=== PATIENT | male | born 1980 | race Caucasian/White ===

== ENCOUNTER 2019-10-16 15:54 | Emergency (ER) | payer OTHER, SELFPAY ==
--- NOTE | ~2019-10-16 | XR_ITS ---
EXAMINATION: XR chest 1V portable EXAM DATE: 10/16/2019 19:01 INDICATION: Vomiting. Thinks he has food poisoning. TECHNIQUE: Portable AP frontal chest x-ray was obtained. Comparison is made to prior examination from 01/01/2017. FINDINGS: The lungs are clear. There are no pleural effusions. Cardiac silhouette is prominent but magnified on this AP technique. There is no pneumothorax suspected. The bones and soft tissues are unremarkable. Spine stimulator leads, tips projecting over the T7 and T8 vertebral bodies. IMPRESSION: No acute cardiopulmonary findings. Reviewed, dictated and finalized at location A.
[2019-10-16 15:55] VITALS: BP 120/70; PULSE 84; RESP 18; TEMP 36.6; O2SAT 100
[2019-10-16 16:47] LABS: Basophils Percent Auto 0.2 % (0.2-1.2); Eosinophils Absolute Auto 0.1 K/mm3 (0-0.3); Eosinophils Percent Auto 0.5 % (0-4.4); Hematocrit 44.2 % (42.0-52.0); Hemoglobin 15.1 g/dL (14.0-18.0); Immature Granulocyte Absolute 0.05 K/mm3 (0.00-0.031); Immature Granulocyte Percent A 0.4 % (0-0.5); Lymphocytes Absolute Auto 1.42 K/mm3 (0.9-3.2); Lymphocytes Percent Auto 10.6 % (18.3-44.2); Mean Corpuscular HGB Conc 34.2 g/dl (32-36); Mean Corpuscular Hemoglobin 30.2 pg (26-34); Mean Corpuscular Volume 88.4 fl (80-100); Mean Platelet Volume 10.4 fl (7.4-10.4); Monocytes Percent Auto 7.6 % (2.6-8.5); Neutrophils Absolute Auto 10.8 K/mm3 (1.3-6.7); Neutrophils Percent Auto 80.7 % (45.5-73.1); Platelet Count Result 231 k/mm3 (150-375); Red Cell Distribution Width 12.1 % (11.5-14.5); White Blood Count 13.4 K/mm3 (4.5-10.0)
[2019-10-16] MEDS: FAMOTIDINE 20 MG/2 ML VIAL IV PUSH (16:53)
[2019-10-16] MEDS: ONDANSETRON INJ 4 MG/2 ML VIAL IV PUSH (16:56)
[2019-10-16 16:58] LABS: Alanine Aminotransferase 39 U/L (4-50); Albumin Level 4.7 g/dL (3.5-5.1); Alkaline Phosphatase 108 U/L (38-126); Aspartate Amino Transferase 27 U/L (17-59); Bilirubin,Total 0.9 mg/dL (0.2-1.3); Blood Urea Nitrogen 10 mg/dL (9-20); Calcium 9.4 mg/dL (8.4-10.2); Carbon Dioxide 31 mmol/L (22-30); Chloride 101 mmol/L (98-107); Estimated CRCL calculation 110 ml/min; Estimated Glomerular Filt Rate > 60; Glucose 101 mg/dL (75-110); Lipase 57 U/L (23-300); Potassium 3.4 mmol/L (3.4-5.0); Sodium 139 mmol/L (137-145)
[2019-10-16] MEDS: SODIUM CHLORIDE 0.9% IV 1,000 ML 999 ML IV CONT ×2 (17:00→18:15)
--- NOTE | 2019-10-16 17:38 | ED.ABDPAIN ---
HPI - Abdominal Pain General Chief Complaint: Abdominal Pain Stated Complaint: I think I have food poisoning Time Seen by Provider: 10/16/19 15:58 Source: patient Mode of arrival: ambulatory Limitations: no limitations History of Present Illness HPI narrative: Patient is a 39 male who presents with vomiting and diarrhea after eating fast food last night noting that he had multiple episodes of emesis and diarrhea with possible blood in his stool. Patient notes diffuse cramping has not taken anything for his symptoms. Patient notes he ate fast food and his symptoms developed in the early hours of the morning. Patient was seen at urgent care and also notes he has been having a migraine for the last several days with history of chronic migraines. Patient on arrival is in the room in no distress. Patient denies URI symptoms or sick contacts Related Data Allergies Allergy/AdvReac Type Severity Reaction Status Date / Time No Known Allergies Allergy Mild Verified 10/16/19 15:34 Review of Systems Review of Systems: All systems reviewed & are unremarkable except as noted in HPI and below PMFSH Past Medical History Medical History (Updated 10/16/19 @ 18:54 by Flex Landon PA-C) Migraine headache Social History Social History Smoking status: Never smoker Alcohol intake: current Exam Narrative: Exam Narrative: GENERAL: Well-appearing, well-nourished, and in no acute distress. HEAD: Normocephalic, atraumatic. EYES: PERRLA and EOMI. ENT: Nares clear, no rhinorrhea or epistaxis. Mucous membranes moist. CHEST: Clear to auscultation. No respiratory distress. No wheezes rales or rhonchi HEART: Regular rate and rhythm. No murmur heard. Normal peripheral pulses. ABDOMEN: Soft, mild tenderness of the abdomen that is generalized, nondistended, normal active bowel sounds. EXTREMITIES: Normal range of motion. No edema. SKIN: Warm, dry, no rash. NEURO: No focal deficits. Alert and oriented x3. Cranial nerves II through XII grossly intact PSYCH: Normal mood and affect. Course Course Emergency Course: Patient in the room aware of case findings treatment plan and diagnosis feeling better with interventions felt appropriate for discharge home agreeing to follow-up as directed or to return if symptoms worsen or concerns Vital Signs Vital signs: Vital Signs Temperature 97.8 F 10/16/19 15:55 Pulse Rate 84 10/16/19 15:55 Respiratory Rate 18 10/16/19 15:55 Blood Pressure 120/70 10/16/19 15:55 Pulse Oximetry 100 10/16/19 15:55 Temperature 97.8 F 10/16/19 15:55 Pulse Rate 84 10/16/19 15:55 Respiratory Rate 18 10/16/19 15:55 Blood Pressure 120/70 10/16/19 15:55 Pulse Oximetry 100 10/16/19 15:55 MDM - Abdominal Pain MDM Narrative Medical decision making narrative: Patient was hydrated with medications in the emergency department for nausea and his headache is feeling much better at this time agreeing to follow-up as directed felt appropriate for outpatient reevaluation tolerating p.o. intake agreeing to return if symptoms worsen or concerns Lab Data Result diagrams: 10/16/19 16:39 10/16/19 16:39 Labs: Lab Results 10/16/19 10/16/19 10/16/19 Range/Units 16:39 16:39 18:31 WBC 13.4 H (4.5-10.0) K/mm3 RBC 5.00 (4.6-6.20) M/mm3 Hgb 15.1 (14.0-18.0) g/dL Hct 44.2 (42.0-52.0) % MCV 88.4 (80-100) fl MCH 30.2 (26-34) pg MCHC 34.2 (32-36) g/dl RDW 12.1 (11.5-14.5) % Plt Count 231 (150-375) k/mm3 MPV 10.4 (7.4-10.4) fl Immature Gran % (Auto) 0.4 (0-0.5) % Neut % (Auto) 80.7 H (45.5-73.1) % Lymph % (Auto) 10.6 L (18.3-44.2) % [place] % (Auto) 7.6 (2.6-8.5) % Eos % (Auto) 0.5 (0-4.4) % Baso % (Auto) 0.2 (0.2-1.2) % Lymph # (Auto) 1.42 (0.9-3.2) K/mm3 [place] # (Auto) 1.0 H (0.1-0.6) K/mm3 Eos # (Auto) 0.1 (0-0.3) K/mm3 Ba
[2019-10-16 18:45] LABS: Add Urine Microscopic? YES; Appearance Urine Clear (Clear); Bacteria Urine Trace /hpf; Bilirubin Urine Negative (Negative); Blood Urine 1+ (Negative); Color Urine Colorless (Yellow); Glucose Urine UA Negative (Negative); Ketones Urine Negative (Negative); Leukocyte Esterase Ur Negative LEU/UL (Negative); Mucus Urine Rare /lpf; Nitrate Urine Negative (Negative); Protein Urine Negative (Negative); Specific Grav Ur 1.005 (1.001-1.035); Urobilinogen Urine Negative mg/dL (<2.0); WBC Urine 0-3 /hpf
[2019-10-16 19:19] VITALS: BP 118/72; PULSE 88; RESP 16; TEMP 36.4; O2SAT 100
== END 2019-10-16 19:22 | disposition home or self-care (01) ==
PROVIDERS: Emergency Medicine Emergency Medical Services; Emergency Provider Emergency Medicine; PCP Family Medicine
DX: G43.909 Migraine, unspecified, not intractable, without status migrainosus (principal); R10.84 Generalized abdominal pain
CPT/HCPCS: 36415; 71045; 80053; 81001; 83690; 85025; 96361; 96374; 96375; 99284; J0131; J1200; J2405; J7030

== ENCOUNTER 2020-10-08 15:41 | Outpatient (CLI) | payer OTHER, SELFPAY ==
--- NOTE | ~2020-10-08 | XR_ITS ---
XR sacroiliac joints min 3V 10/08/2020 16:00 Indication: Sacroiliac pain. Lumbar fusion. Procedure: 3 view sacroiliac joints Comparison: No prior studies for comparison. Findings: Sacroiliac joints are symmetric without evidence for significant degenerative change, erosi ons or ankylosis. Sacral foramen are symmetric. Partially visualized surgical spinal fusion changes a t L4-5. Surrounding pelvic structures are unremarkable. Impression: 1: No significant abnormality of the sacroiliac joints. Reviewed, dictated and finalized at location A. Impression: 1: No significant abnormality of the sacroiliac joints.
== END 2020-10-08 15:42 | disposition home or self-care (01) ==
LOC: ANHIMG 15:46
PROVIDERS: PCP Family Medicine; Visit Provider Nurse Practitioner Family
DX: M53.3 Sacrococcygeal disorders, not elsewhere classified (principal)
CPT/HCPCS: 72202

== ENCOUNTER → 2020-10-19 01:37 | Outpatient (CLI) | payer OTHER, SELFPAY ==
[2020-10-19 19:38] LABS: SARS-CoV-2 RNA PCR Negative
== END ==
PROVIDERS: PCP Family Medicine; Visit Provider Urology
DX: Z01.812 Encounter for preprocedural laboratory examination (principal); Z20.822 Contact with and (suspected) exposure to COVID-19
CPT/HCPCS: C9803; U0003; U0005

== ENCOUNTER 2020-10-22 00:52 | Day surgery (SDC) | payer OTHER, SELFPAY ==
[2020-10-10 08:42] VITALS: BMI 28.3
[2020-10-22] VITALS (8 sets, daily range): BP systolic 136–153; BP diastolic 89–103; PULSE 68–77; RESP 14–20; TEMP 36.4–36.7; O2SAT 97–100
--- NOTE | 2020-10-22 10:46 | WPDANESEPPF ---
Anes - Initial Pre Proc Eval Procedure: Operation Date: 10/22/20 14:15 Proposed Procedures p Bilateral Vasectomy, Possible Scrotal Exploration - Kade Ochoa MD Date/Time: 10/22/20 10:46 Surgeon: Kade Ochoa MD Pre Op Diagnosis: desires sterilization Patient Data Age: 40 Gender: M Height: 1.85 m Weight: 97.52 kg Allergies Allergy/AdvReac Type Severity Reaction Status Date / Time duloxetine [From Cymbalta] Allergy Mild rash Verified 10/10/20 08:39 Home Medications Medication Instructions Recorded Confirmed Type alprazolam 0.5 mg tablet 0.5 mg PO BID PRN #30 tablet 12/19/19 10/10/20 Rx erenumab-aooe 70 mg/mL 70 mg SUB-Q MONTHLY #1 each 03/18/20 10/10/20 Rx subcutaneous auto-injector zolmitriptan 5 mg nasal spray 1 spray NASAL Q2H PRN #6 each 08/13/20 10/10/20 Rx tizanidine 4 mg tablet 4 mg PO BID PRN #180 tablet 09/05/20 10/10/20 Rx ondansetron 4 mg disintegrating 4 mg PO Q6H PRN #20 tablet 09/12/20 10/10/20 Rx tablet buspirone 7.5 mg tablet 7.5 mg PO BID #60 tablet 10/04/20 10/10/20 Rx escitalopram oxalate 20 mg tablet 20 mg PO DAILY #30 tablet 10/04/20 10/10/20 Rx hydrocodone 7.5 mg-acetaminophen 1 tablet PO Q8H PRN #60 tablet 10/04/20 10/10/20 Rx 325 mg tablet rizatriptan 10 mg tablet See Rx Instructions PO .COMPLEX 10/04/20 10/10/20 Rx #10 tablet Patient hx anesthesia problems: none Family hx anesthesia problems: none PMFSH Past Medical History Medical History (Updated 10/22/20 @ 10:47 by Jose Raymond MD) Adult BMI 28.0-28.9 kg/sq m Anxiety disorder, unspecified BMI 27.0-27.9,adult Chronic narcotic use Depression Lumbar radiculopathy Migraine headache Surgical History Surgical History History of oral surgery Family History Family History Father Hypertension Social History Social History (Updated 08/15/20 @ 09:27 by Tamia Hanley) Smoking packs per day: 2 Smoking cigarettes per day: 40.0 Years smoked: 5 Smoking pack-years: 10.00 Smoking status: Former smoker Smoking end date: 05/17/09 Alcohol intake: current Alcohol use details: 1-2/MONTH Substance use: never Substance use type: does not use Living arrangements: with family Spiritual care concerns: No Anes - Eval Final PreProcedure Day of Procedure 10/22/20 10:46 Patient weight: overweight Heart: regular rate and rhythm Lungs: clear to auscultation and normal air movement Airway: Mallampati scale class II Neurological: alert and oriented Last oral intake: >/= 8 hours ASA classification: III Emergent: no Anesthetic plan: proceed Anesthesia type and monitoring: general LMA Informed Consent: The patient's anesthetic plan and its attendant risks and benefits were discussed with the patient/family/POA. Questions were solicited and answers provided to the satisfaction of the patient/family/POA.
--- NOTE | 2020-10-22 11:53 | WPDHPUPDATE1 ---
History and Physical Update Update Date/Time: 10/22/20 11:53 History and Physical has been reviewed, including an updated exam of the patient. There are NO changes in the patient's condition. Risks, benefits, and alternatives have been discussed and questions answered. Patient agrees to proceed with procedure.
[2020-10-22] MEDS: LACTATED RINGERS 1,000 ML 30 ML IV CONT (13:06)
[2020-10-22] MEDS: fentaNYL CITRATE INJ (*CRX) 100 MCG/2 ML VIAL 50 MCG IV PUSH (13:24)
[2020-10-22] MEDS: ceFAZolin 2 GM/D5W 50 ML 2 GM/50 ML BAG IVPB (13:38)
--- NOTE | 2020-10-22 14:34 | P.OP_ITS ---
Procedure Note - Detailed Date of Procedure 10/22/20 Pre-op Diagnosis desires sterilization Post-op Diagnosis same (Left hydrocele, blind ending left vas) Procedure Performed Right vasectomy, scrotal exploration with left hydrocelectomy and excision of left blind-ending vas Surgeon Kade Ochoa MD Anesthesia MAC Description of Procedure Patient is taken the operative suite correctly identified. Once anesthesia was obtained was placed in supine position and prepped and draped usual sterile fashion. A midline incision in the scrotum was made and the right vas was isolated easily. A segment was excised. The ends were fulgurated ligated and buried. We anesthetized with 1% lidocaine. The left vas again was never palpated. At this point time we extended our incision slightly. We opened up the tunica. It was noted that the patient had a left hydrocele which was opened drained of approximately 20 cc of fluid. The excess tissue was excised and sent for analysis. Inspection of the testicle revealed an appendix testes which we fulgurated. At the tail end of the epididymis it was noted that a structure similar to the vas was palpated. This was dissected out and then was found to be blind ending after approximately 1 cm. This was sent for analysis. Quarter- inch [place] drain was then placed through a separate stab incision. This was secured using 3 0 chromic. Testicles placed back in its appropriate location. To to close closed using 3 0 chromic as was the skin. Patient will follow up in approximately 2-3 weeks time. He can remove the Ari[place] drain in a couple days if there is minimal drainage. Estimated Blood Loss 0 Drains Yes Packing No Pathology yes Complications No immediate complications Condition stable Disposition PACU
[2020-10-22] MEDS: fentaNYL CITRATE INJ (*CRX) 100 MCG/2 ML VIAL 25 MCG IV PUSH ×4 (14:52→15:10)
--- NOTE | 2020-10-22 14:55 | SUR.PHASEI ---
1450- family member updated
[2020-10-22] MEDS: HYDROmorphone HCL INJ (*CRX) 1 MG/ML SYR 0.25 MG IV PUSH ×4 (15:19→15:33)
--- NOTE | 2020-10-22 15:29 | SUR.PHASEI ---
1520- remains very painful in spite of pain medication.
[2020-10-22] MEDS: oxyCODONE HCL (*CRX) 5 MG TAB IR PO (15:59)
== END 2020-10-22 17:00 | disposition home or self-care (01) ==
PROVIDERS: PCP Family Medicine; Visit Provider Urology
PROC: (CPT 55250; principal; 2020-10-22 14:15)
DX: Z30.2 Encounter for sterilization (principal); N43.3 Hydrocele, unspecified; F41.8 Other specified anxiety disorders; Z87.891 Personal history of nicotine dependence
CPT/HCPCS: 55250; 55040; 88300; 88302; A9270; C9803; J0690; J1100; J1170; J2250; J2405; J2704; J3010; J7120; U0003; U0005

== ENCOUNTER 2021-04-09 21:37 | Emergency (ER) | payer OTHER, SELFPAY ==
--- NOTE | ~2021-04-09 | CT_ITS ---
EXAMINATION: CT abdomen pelvis w con DATE: 04/09/2021 23:10 INDICATION: Diffuse abdominal pain TECHNIQUE: Computed tomography (CT) of the abdomen and pelvis was performed with 100 cc Omnipaque 350 intravenous contrast. The dose-length product was 895.00 mGy-cm. Automated exposure control and iter ative reconstruction technique were employed. COMPARISON: None. FINDINGS: There is right lower lobe atelectasis. Heart size normal. No significant pleural or pericar dial effusion. Fatty infiltration of the liver. No significant vascular abnormality. No lymphadenopat hy. No evidence for hernia. The spleen, pancreas, adrenal glands and kidneys are unremarkable. No hydronephrosis. Gallbladder is present. Nonobstructive bowel gas pattern. Normal appendix. No abnormal pelvic masses or fluid collec tions. Status post spinal fusion at L4-5 with prosthetic disc device at this level. Spinal stimulator leads are noted. IMPRESSION: 1. No acute abdominal abnormality. Reviewed, dictated and finalized at location A. ENT SUPPORT TECH
[2021-04-09 21:42] VITALS: BP 126/83; PULSE 103; RESP 22; TEMP 36.1; O2SAT 98
--- NOTE | 2021-04-09 21:58 | ED.NAVMDI ---
HPI - Nausea/Vomiting/Diarrhea General Chief complaint: Nausea/Vomiting/Diarrhea Stated complaint: food poisoning, N/V X4 hours Time Seen by Provider: 04/09/21 21:45 Source: patient and RN notes reviewed Mode of arrival: ambulatory Limitations: no limitations History of Present Illness HPI Narrative: This is a 40 year old male with history of chronic pain on hydrocodone who presents for evaluation of nausea, vomiting and diarrhea. He states he developed diarrhea 5 hours ago , and he developed nausea and vomiting shortly after. He reports last eating macaroni and cheese at 3 pm. He developed vomiting after that. He also reports having diffuse abdominal pain that he describes as stomach doing flips . He has been having episodes of chills with feeling warm. He is also complaining of his chronic hip pain because he has not taken his pain medication since 11 am. He normally takes hydrocodone 7.5 mg every 6 hours every day. He states he was scheduled for bilateral SI fusion 1 month ago but his insurance would not approve surgery. He denies sick contacts. Related Data Allergies Allergy/AdvReac Type Severity Reaction Status Date / Time duloxetine [From Cymbalta] Allergy Mild rash Verified 04/09/21 21:46 Review of Systems Review of Systems: All systems reviewed & are unremarkable except as noted in HPI and below PMFSH Past Medical History Medical History Adult BMI 28.0-28.9 kg/sq m Anxiety disorder, unspecified BMI 27.0-27.9,adult Chronic narcotic use Depression Lumbar radiculopathy Migraine headache Surgical History Surgical History History of oral surgery Family History Family History Father Hypertension Social History Social History Smoking packs per day: 2 Smoking cigarettes per day: 40.0 Years smoked: 5 Smoking pack-years: 10.00 Smoking status: Former smoker Smoking end date: 05/17/09 Alcohol intake: current Alcohol use details: 1-2/MONTH Substance use: never Substance use type: does not use Spiritual care concerns: No Exam Const: General: no acute distress and alert Orientation/consciousness: patient oriented x3 Eyes: EOM: EOMs intact bilaterally Resp: Effort & Inspection: normal respiratory effort and no retractions Auscultation: clear to auscultation bilaterally Cardio: Rate: regular rate Rhythm: regular rhythm Heart sounds: no murmurs GI: GI Palp: Yes Soft to palpation and No Guarding due to palpation present (GI) Auscultation: normal bowel sounds Neuro: General: patient oriented x3, moves all extremities and CN's II-XI intact bilaterally Psych: Mental Status: mental status grossly normal Affect: normal affect Course Reevaluation(s) Reevaluation #1: PAtient reports he feels better. He was able to eat and drink without vomiting. He had some minor abdominal cramping. He has some leukocytosis which is likely stress reaction given normal Ct Date: 04/10/21 Time: 01:01 Vital Signs Vital signs: Vital Signs Temperature 96.9 F L 04/09/21 21:42 Pulse Rate 103 H 04/09/21 21:42 Respiratory Rate 22 H 04/09/21 21:42 Blood Pressure 126/83 04/09/21 21:42 Pulse Oximetry 98 04/09/21 21:42 Temperature 96.9 F L 04/09/21 21:42 Pulse Rate 92 04/10/21 01:16 Respiratory Rate 18 04/10/21 01:16 Blood Pressure 134/75 04/10/21 01:16 Pulse Oximetry 98 04/10/21 01:16 MDM - Nausea/Vomiting/Diarrhea Lab Data Attestation: I reviewed the patient's lab results. Result diagrams: 04/09/21 21:58 04/09/21 21:58 Labs: Lab Results 04/09/21 04/09/21 04/09/21 Range/Units 21:58 21:58 23:18 WBC 22.5 H (4.5-10.0) K/mm3 RBC 5.02 (4.6-6.20) M/mm3 Hgb 15.4 (14.0-18.0) g/dL Hct 45.4
[2021-04-09 22:11] LABS: Basophils Absolute Auto 0.1 K/mm3 (0.0-0.1); Basophils Percent Auto 0.3 % (0.2-1.2); Eosinophils Percent Auto 0.2 % (0-4.4); Hematocrit 45.4 % (42.0-52.0); Hemoglobin 15.4 g/dL (14.0-18.0); Immature Granulocyte Absolute 0.16 K/mm3 (0.00-0.031); Immature Granulocyte Percent A 0.7 % (0-0.5); Lymphocytes Absolute Auto 1.11 K/mm3 (0.9-3.2); Lymphocytes Percent Auto 4.9 % (18.3-44.2); Mean Corpuscular HGB Conc 33.9 g/dl (32-36); Mean Corpuscular Hemoglobin 30.7 pg (26-34); Mean Corpuscular Volume 90.4 fl (80-100); Mean Platelet Volume 9.8 fl (7.4-10.4); Monocytes Absolute Auto 0.2 K/mm3 (0.1-0.6); Monocytes Percent Auto 0.9 % (2.6-8.5); Neutrophils Absolute Auto 20.9 K/mm3 (1.3-6.7); Platelet Count Result 296 k/mm3 (150-375); Red Blood Count 5.02 M/mm3 (4.6-6.20); Red Cell Distribution Width 12.9 % (11.5-14.5); White Blood Count 22.5 K/mm3 (4.5-10.0)
[2021-04-09 22:22] LABS: Alanine Aminotransferase 53 U/L (4-50); Albumin Level 4.4 g/dL (3.5-5.1); Alkaline Phosphatase 90 U/L (38-126); Anion Gap 11 mmol/L (8-16); Aspartate Amino Transferase 38 U/L (17-59); Bilirubin,Total 0.5 mg/dL (0.2-1.3); Blood Urea Nitrogen 23 mg/dL (9-20); Carbon Dioxide 22 mmol/L (22-30); Chloride 101 mmol/L (98-107); Estimated CRCL calculation 134 ml/min; Estimated Glomerular Filt Rate > 60; Glucose 106 mg/dL (65-110); Lipase 97 U/L (23-300); Potassium 3.7 mmol/L (3.4-5.0); Sodium 134 mmol/L (137-145)
[2021-04-09] MEDS: ONDANSETRON INJ 4 MG/2 ML VIAL IV PUSH (22:33)
[2021-04-09] MEDS: LACTATED RINGERS 1,000 ML 999 ML IV CONT (22:33)
[2021-04-09] MEDS: HYDROmorphone HCL INJ (*CRX) 1 MG/ML SYR IV PUSH (22:33)
[2021-04-09 22:42] VITALS: BP 126/82; PULSE 103; RESP 18; O2SAT 97
[2021-04-09 22:44] VITALS: BP 106/75; BP 116/83; BP 121/84; PULSE 105; PULSE 120; PULSE 87
[2021-04-09 23:32] LABS: Add Urine Microscopic? NO; Appearance Urine Clear (Clear); Bilirubin Urine Negative (Negative); Blood Urine Negative (Negative); Color Urine Yellow (Yellow); Glucose Urine UA Negative (Negative); Ketones Urine Negative (Negative); Leukocyte Esterase Ur Negative LEU/UL (Negative); Nitrate Urine Negative (Negative); Protein Urine Negative (Negative); Urobilinogen Urine Negative mg/dL (<2.0)
[2021-04-09 23:33] VITALS: BP 126/79; PULSE 97; RESP 18; O2SAT 97
[2021-04-09] MEDS: SODIUM CHLORIDE 0.9% IV 1,000 ML 999 ML IV CONT (23:34)
--- NOTE | 2021-04-10 00:20 | PC.NURSE ---
Pt tolerated PO challenge well, no instances of dry heaving or emesis at this time.
[2021-04-10 00:31] VITALS: BP 111/76; PULSE 96; RESP 18; O2SAT 97
[2021-04-10 01:16] VITALS: BP 134/75; PULSE 92; RESP 18; O2SAT 98
== END 2021-04-10 01:21 | disposition home or self-care (01) ==
PROVIDERS: Emergency Provider General Practice; PCP Family Medicine
DX: K52.9 Noninfective gastroenteritis and colitis, unspecified (principal); G89.29 Other chronic pain; M25.559 Pain in unspecified hip; Z87.891 Personal history of nicotine dependence
CPT/HCPCS: 36415; 74177; 80053; 81003; 83690; 85025; 96361; 96374; 96375; 99284; J0131; J1170; J2405; J7030; J7120; Q9967

== ENCOUNTER 2021-06-23 15:08 | Outpatient (CLI) | payer OTHER, SELFPAY ==
--- NOTE | 2021-06-23 | ECG_ITS ---
Measurements Intervals [place] Rate: 74 P: 55 PA: 137 QRS: -1 QRSD: 106 T: 11 QT: 411 QTc: 457 Interpretive Statements SINUS RHYTHM MINIMAL Q WAVES- HIGH LATERAL LEADS BASELINE ARTIFACT- I, III, AVF BORDERLINE ECG Electronically Signed On 06-23-2021 16:41:49 SUSTAINABILITY COORDINATOR by Cooper Maloney D.O.
[2021-06-23 15:27] LABS: Basophils Absolute Auto 0.1 K/mm3 (0.0-0.1); Basophils Percent Auto 0.6 % (0.2-1.2); Eosinophils Absolute Auto 0.2 K/mm3 (0-0.3); Eosinophils Percent Auto 1.9 % (0-4.4); Hematocrit 43.9 % (42.0-52.0); Hemoglobin 14.8 g/dL (14.0-18.0); Immature Granulocyte Absolute 0.03 K/mm3 (0.00-0.031); Immature Granulocyte Percent A 0.3 % (0-0.5); Lymphocytes Absolute Auto 2.47 K/mm3 (0.9-3.2); Lymphocytes Percent Auto 26.4 % (18.3-44.2); Mean Corpuscular HGB Conc 33.7 g/dl (32-36); Mean Corpuscular Hemoglobin 31.1 pg (26-34); Mean Corpuscular Volume 92.2 fl (80-100); Mean Platelet Volume 9.9 fl (7.4-10.4); Monocytes Absolute Auto 0.9 K/mm3 (0.1-0.6); Monocytes Percent Auto 9.3 % (2.6-8.5); Neutrophils Absolute Auto 5.8 K/mm3 (1.3-6.7); Neutrophils Percent Auto 61.5 % (45.5-73.1); Platelet Count Result 274 k/mm3 (150-375); Red Blood Count 4.76 M/mm3 (4.6-6.20); Red Cell Distribution Width 12.4 % (11.5-14.5); White Blood Count 9.4 K/mm3 (4.5-10.0)
[2021-06-23 15:36] LABS: Add Urine Microscopic? NO; Appearance Urine Clear (Clear); Bilirubin Urine Negative (Negative); Blood Urine Negative (Negative); Color Urine Straw (Yellow); Glucose Urine UA Negative (Negative); Ketones Urine Negative (Negative); Leukocyte Esterase Ur Negative LEU/UL (Negative); Nitrate Urine Negative (Negative); Protein Urine Negative (Negative); Specific Grav Ur 1.013 (1.001-1.035); Urobilinogen Urine Negative mg/dL (<2.0)
[2021-06-23 15:55] LABS: Erythrocyte Sedimentation Rate 4 mm/hr (0-20)
[2021-06-23 17:40] LABS: Alanine Aminotransferase 56 U/L (4-50); Albumin Level 4.4 g/dL (3.5-5.1); Alkaline Phosphatase 85 U/L (38-126); Anion Gap 4 mmol/L (8-16); Aspartate Amino Transferase 34 U/L (17-59); Bilirubin,Total 0.4 mg/dL (0.2-1.3); Blood Urea Nitrogen 13 mg/dL (9-20); CRP < 0.5 mg/dL (<1.0); Calcium 8.9 mg/dL (8.4-10.2); Carbon Dioxide 28 mmol/L (22-30); Chloride 105 mmol/L (98-107); Estimated Glomerular Filt Rate > 60; Glucose 95 mg/dL (65-110); Potassium 3.8 mmol/L (3.4-5.0); Sodium 137 mmol/L (137-145)
== END 2021-06-23 15:09 | disposition home or self-care (01) ==
PROVIDERS: PCP Family Medicine; Visit Provider Nurse Practitioner Family
DX: Z01.818 Encounter for other preprocedural examination (principal)
CPT/HCPCS: 36415; 80053; 81003; 85025; 85652; 86140; 93005

== ENCOUNTER 2022-02-26 12:12 | Outpatient (CLI) | payer OTHER, SELFPAY | END 2022-02-26 12:13 | disposition home or self-care (01) | LOC: ANHSURGERY 12:15 | PROVIDERS: PCP Family Medicine; Visit Provider Neurological Surgery | DX: Z01.818 Encounter for other preprocedural examination (principal); M54.16 Radiculopathy, lumbar region | CPT/HCPCS: 36415; 86850; 86900; 86901 ==

== ENCOUNTER 2022-02-26 18:29 | Emergency (ER) | payer OTHER, SELFPAY ==
[2022-02-26] VITALS (11 sets, daily range): BP systolic 145–177; BP diastolic 107–117; PULSE 63–85; RESP 11–19; TEMP 36.6; O2SAT 97–100
--- NOTE | ~2022-02-26 | XR_ITS ---
EXAMINATION: XR chest 2V DATE: 02/26/2022 18:47 INDICATION: Chest pain TECHNIQUE: Frontal and lateral views of the chest are obtained COMPARISON: 10/16/2019 FINDINGS: The lungs are free of acute opacities. No pleural effusion or pneumothorax. The cardiomedia stinal silhouette is normal. There is mild thoracic spondylosis. Neurostimulator leads enter the cent ral spinal canal borderline the midthoracic spine. IMPRESSION: 1. No acute cardiopulmonary abnormality. Reviewed, dictated and finalized at location F.
--- NOTE | 2022-02-26 18:30 | ECG_ITS ---
Measurements Intervals [place] Rate: 77 P: 48 NC: 139 QRS: -7 QRSD: 94 T: 3 QT: 392 QTc: 444 Interpretive Statements SINUS RHYTHM COMPARED TO ECG 06/23/2021 15:36:10 NO SIGNIFICANT CHANGES Electronically Signed On 02-26-2022 18:42:44 CDT by Nicky Lewis M.D.
[2022-02-26 18:49] LABS: Basophils Absolute Auto 0.1 K/mm3 (0.0-0.1); Basophils Percent Auto 0.7 % (0.2-1.2); Eosinophils Absolute Auto 0.2 K/mm3 (0-0.3); Eosinophils Percent Auto 3.4 % (0-4.4); Hematocrit 45.8 % (42.0-52.0); Hemoglobin 15.3 g/dL (14.0-18.0); Immature Granulocyte Absolute 0.02 K/mm3 (0.00-0.031); Immature Granulocyte Percent A 0.3 % (0-0.5); Lymphocytes Absolute Auto 2.17 K/mm3 (0.9-3.2); Lymphocytes Percent Auto 32.4 % (18.3-44.2); Mean Corpuscular HGB Conc 33.4 g/dl (32-36); Mean Corpuscular Hemoglobin 30.5 pg (26-34); Mean Corpuscular Volume 91.4 fl (80-100); Monocytes Absolute Auto 0.8 K/mm3 (0.1-0.6); Monocytes Percent Auto 11.8 % (2.6-8.5); Neutrophils Absolute Auto 3.4 K/mm3 (1.3-6.7); Neutrophils Percent Auto 51.4 % (45.5-73.1); Platelet Count Result 290 k/mm3 (150-375); Red Blood Count 5.01 M/mm3 (4.6-6.20); Red Cell Distribution Width 12.7 % (11.5-14.5); White Blood Count 6.7 K/mm3 (4.5-10.0)
[2022-02-26 18:57] LABS: Alanine Aminotransferase 53 U/L (6-50); Albumin Level 4.6 g/dL (3.5-5.1); Alkaline Phosphatase 99 U/L (38-126); Anion Gap 7 mmol/L (8-16); Aspartate Amino Transferase 34 U/L (17-59); Bilirubin,Total 0.4 mg/dL (0.2-1.3); Blood Urea Nitrogen 14 mg/dL (9-20); Calcium 8.9 mg/dL (8.4-10.2); Carbon Dioxide 30 mmol/L (22-30); Chloride 105 mmol/L (98-107); Estimated Glomerular Filt Rate > 60; Glucose 96 mg/dL (65-110); Lipase 122 U/L (23-300); Potassium 3.7 mmol/L (3.4-5.0); Sodium 142 mmol/L (137-145)
[2022-02-26 18:58] LABS: Prothrombin Time 12.6 Seconds (11.1-14.7)
[2022-02-26 19:09] LABS: Troponin I < 0.012 ng/mL (0.000-0.034)
--- NOTE | 2022-02-26 20:58 | ED.CHESTPAIN ---
HPI - Chest Pain General Chief Complaint: Chest Pain Stated Complaint: chest pain Time Seen by Provider: 02/26/22 20:56 History of Present Illness HPI narrative: Patient is a 41-year-old male here for evaluation of chest pain over the past 3 days. Patient states the pain is in the center of his chest, is described as stabbing in nature, and occasionally moves into his left shoulder. The pain comes and goes without obvious trigger. He has attempted omeprazole without relief. He saw his PCP today who ordered an EKG, called patient to take a Xanax, and come to the ED if his pain is not better. He took a Xanax but his pain has improved, which prompted his evaluation. He denies any shortness of breath, fevers, chills, shortness of breath, leg swelling. He has no cardiac history personally, but does note that his father had a cabg at 45. Has stress test ordered by PCP. Related Data Allergies Allergy/AdvReac Type Severity Reaction Status Date / Time No Known Allergies Allergy Verified 02/26/22 11:09 Review of Systems Review of Systems: Gen: Denies fevers or chills Eyes: Denies eye pain or visual change ENT: Denies congestion Respiratory: Denies shortness of breath or cough CV: Reports chest pain. GI: Denies abdominal pain nausea, emesis or diarrhea denies burning, urgency, frequency or hematuria Musculoskeletal: Denies back pain or muscle pain Neuro: Denies numbness, tingling, weakness or focal weakness Skin: Denies rash Except as documented, all other systems reviewed and negative [facility] Past Medical History Medical History Adult BMI 28.0-28.9 kg/sq m Anxiety disorder, unspecified BMI 27.0-27.9,adult BMI 30.0-30.9,adult Chronic narcotic use Depression Depression with anxiety Lumbar radiculopathy Migraine headache Sacroiliac dysfunction Surgical History Surgical History History of oral surgery Family History Family History Father Hypertension Mother No problems noted. Sibling No problems noted. Social History Social History Smoking packs per day: 2 Smoking cigarettes per day: 40.0 Years smoked: 4 Smoking pack-years: 8.00 Smoking status: Former smoker Tobacco type: cigarettes Smoking end date: 02/19/10 Alcohol intake: current Alcohol use details: 1-2/MONTH Substance use: never Substance use type: does not use Spiritual care concerns: No Exam Narrative: APPEARANCE: Well appearing, no pain in distress, well-nourished. Head: Normocephalic and atraumatic. EYES: PERRLA/EOMI, conjunctivae clear NOSE: No nasal drainage EARS: External ear normal in appearance THROAT: Oropharynx is clear. Mucous membranes are moist. NECK: Supple. No adenopathy, no masses. RESPIRATORY: Airway patent, respirations nonlabored. Clear to auscultation bilaterally, no rales, rhonchi, wheezing. CARDIOVASCULAR: Regular rate and rhythm without murmurs, rubs, or gallops. ABDOMINAL: Normoactive bowel sounds. Soft, nontender, nondistended. No rebound tenderness or guarding. MUSCULOSKELETAL: Extremities are warm and well-perfused. Moves all extremities well. No edema. NEURO: Normal speech. No focal neurologic deficits. SKIN: Skin is warm and dry. No rashes. PSYCHIATRIC: Normal affect/mood. Course Vital Signs Vital signs: Vital Signs Temperature 97.9 F 02/26/22 19:20 Pulse Rate 85 02/26/22 19:20 Respiratory Rate 16 02/26/22 19:20 Blood Pressure 145/109 H 02/26/22 19:20 Pulse Oximetry 98 02/26/22 19:20 Oxygen Delivery Room Air 02/26/22 19:20 Temperature 97.9 F 02/26/22 19:20 Pulse Rate 71 02/26/22 21:46 Respiratory Rate 11 L 02/26/22 21:46 Blood Pressure 166/111 H 02/26/22 21:46 Pulse Oximetry 100 02/26/22 21:46 Oxygen Delive
[2022-02-26] MEDS: KETOROLAC 30 MG/ML VIAL (*BKC) IM (21:55)
[2022-02-26 22:04] LABS: Troponin I < 0.012 ng/mL (0.000-0.034)
[2022-02-26 22:30] LABS: D Dimer < 0.27 ug/mL (<0.48)
== END 2022-02-26 23:05 | disposition home or self-care (01) ==
PROVIDERS: Emergency Medicine; Physician Assistant; Emergency Provider Emergency Medicine; PCP Family Medicine
DX: R07.89 Other chest pain (principal); Z87.891 Personal history of nicotine dependence
CPT/HCPCS: 36415; 71046; 80053; 83690; 84484; 85025; 85380; 85610; 85730; 86850; 86900; 86901; 93005; 96372; 99283; J1885

== ENCOUNTER 2023-03-16 13:12 | Outpatient (CLI) | payer OTHER, SELFPAY ==
--- NOTE | ~2023-03-16 | XR_ITS ---
XR hip RT min 2V DATE: 03/16/2023 13:33 INDICATION: Chronic right hip pain TECHNIQUE: AP and lateral views of right hip COMPARISON: 04/05/2021 CT abdomen pelvis FINDINGS: Status post posterior and interbody spinal fusion at L4-5 and right surgical sacroiliac fus ion. No fracture, dislocation, avascular necrosis or bone destruction of the right hip. Right hip joint sp nieves is relatively preserved. IMPRESSION: No significant abnormality of right hip Surgical fusion and right sacroiliac joint and posterior and interbody L4-5 surgical fusion Reviewed, dictated and finalized at location L. IMPRESSION: No significant abnormality of right hip Surgical fusion and right sacroiliac joint and posterior and interbody L4-5 aubrie gical fusion
== END 2023-03-16 13:13 | disposition home or self-care (01) ==
PROVIDERS: PCP Family Medicine; Visit Provider Family Medicine
DX: M53.3 Sacrococcygeal disorders, not elsewhere classified (principal); M25.559 Pain in unspecified hip; Z98.1 Arthrodesis status
CPT/HCPCS: 73502

== ENCOUNTER 2023-08-30 15:26 | Outpatient (CLI) | payer OTHER, SELFPAY ==
--- NOTE | ~2023-08-30 | XR_ITS ---
EXAMINATION: XR thoracic spine 2V DATE: 08/30/2023 15:46 INDICATION: Chronic back pain. TECHNIQUE: 3 views of thoracic spine on 4 radiographs were obtained. COMPARISON: Chest 2 views 02/26/2022 FINDINGS: There is 10 degrees levoscoliosis of thoracic spine. Vertebral body heights and interverteb ral disc heights are normal. The facet joints are unremarkable. Epidural electrodes are noted. IMPRESSION: 1. Thoracic levoscoliosis. Reviewed, dictated and finalized at location E. IMPRESSION: 1. Thoracic levoscoliosis.
== END 2023-08-30 15:27 | disposition home or self-care (01) ==
PROVIDERS: PCP Family Medicine; Visit Provider Neurological Surgery
DX: M41.84 Other forms of scoliosis, thoracic region (principal)
CPT/HCPCS: 72070

== ENCOUNTER 2023-11-09 15:06 | Outpatient (CLI) | payer OTHER, SELFPAY ==
--- NOTE | 2023-11-09 15:28 | ECG_ITS ---
Test Date: 2023-11-09 15:41:46 Measurements Intervals [place] Rate: 84 P: 227 SD: 338 QRS: 1 QRSD: 102 T: -13 QT: 372 QTc: 440 Interpretive Statements SINUS RHYTHM BASELINE ARTIFACT LIMITS INTERPRETATION No previous ECG available for comparison Electronically Signed On 11-10-2023 11:46:39 CDT by Francisco J Hinojosa M.D.
[2023-11-09 15:37] LABS: Basophils Percent Auto 0.2 % (0.2-1.2); Eosinophils Percent Auto 0.1 % (0-4.4); Hematocrit 41.4 % (42.0-52.0); Hemoglobin 14.1 g/dL (14.0-18.0); Immature Granulocyte Absolute 0.07 K/mm3 (0.00-0.031); Immature Granulocyte Percent A 0.5 % (0-0.5); Lymphocytes Absolute Auto 1.58 K/mm3 (0.9-3.2); Lymphocytes Percent Auto 12.1 % (18.3-44.2); Mean Corpuscular HGB Conc 34.1 g/dl (32-36); Mean Corpuscular Hemoglobin 30.9 pg (26-34); Mean Corpuscular Volume 90.8 fl (80-100); Mean Platelet Volume 10.2 fl (7.4-10.4); Monocytes Absolute Auto 0.6 K/mm3 (0.1-0.6); Monocytes Percent Auto 4.8 % (2.6-8.5); Neutrophils Absolute Auto 10.7 K/mm3 (1.3-6.7); Neutrophils Percent Auto 82.3 % (45.5-73.1); Platelet Count Result 311 k/mm3 (150-375); Red Blood Count 4.56 M/mm3 (4.6-6.20); Red Cell Distribution Width 12.5 % (11.5-14.5)
[2023-11-09 15:38] LABS: Appearance Urine Clear (Clear); Bilirubin Urine Negative (Negative); Blood Urine Negative (Negative); Color Urine Yellow (Yellow); Glucose Urine UA Negative (Negative); Ketones Urine Negative (Negative); Leukocyte Esterase Ur Negative LEU/UL (Negative); Nitrate Urine Negative (Negative); Protein Urine Negative (Negative); Specific Grav Ur 1.011 (1.001-1.035); Urobilinogen Urine 0.2 mg/dL (<2.0)
[2023-11-09 15:40] LABS: Add Urine Microscopic? NO
[2023-11-09 15:48] LABS: Alanine Aminotransferase 36 U/L (6-50); Albumin Level 4.5 g/dL (3.5-5.1); Alkaline Phosphatase 91 U/L (38-126); Anion Gap 9 mmol/L (4-12); Aspartate Amino Transferase 27 U/L (17-59); Bilirubin,Total 0.5 mg/dL (0.2-1.3); Blood Urea Nitrogen 15 mg/dL (9-20); CRP < 0.5 mg/dL (<1.0); Carbon Dioxide 25 mmol/L (22-30); Chloride 108 mmol/L (98-107); Estimated Glomerular Filt Rate > 60; Glucose 120 mg/dL (65-110); Potassium 3.6 mmol/L (3.4-5.0); Sodium 142 mmol/L (137-145)
[2023-11-09 16:06] LABS: Erythrocyte Sedimentation Rate 7 mm/hr (0-20)
== END 2023-11-09 15:07 | disposition home or self-care (01) ==
LOC: ANHLAB 15:08
PROVIDERS: PCP Family Medicine; Visit Provider Nurse Practitioner Family
DX: Z01.818 Encounter for other preprocedural examination (principal)
CPT/HCPCS: 36415; 80053; 81003; 85025; 85652; 86140; 87086; 93005

== ENCOUNTER 2025-01-24 14:38 | Outpatient (CLI) | payer OTHER, SELFPAY ==
--- NOTE | ~2025-01-24 | CT_ITS ---
EXAMINATION: CT lumbar spine wo/w con, 01/24/2025 15:05 CDT HISTORY: Chronic pain, post laminectomy, lumbar radiculopa COMPARISON: No comparisons available. Technique: Axial images were obtained of the spine per protocol with and without intravenous contrast. One or more of the following dose reduction techniques were used: automated exposure control, adjustment of the mA and/or kV according to patient size, use of iterative reconstruction technique. Unless otherwise stated, incidental findings do not require dedicated follow up imaging Findings: Moderate loss of vertebral height throughout with posterior fixation of S1, L5 and L4 with disc prostheses at these levels, the hardware is intact with no lucency around the screws, there is fusion of the sacroiliac joints bilaterally, the hardware in these locations also appears intact. There is no abnormal enhancement identified Moderate loss of disc height at L2-3 and L3-4 with circumferential bulging of the disc and facet hypertrophy with mild to moderate canal and foraminal stenosis. Soft tissues unremarkable Spinal canal catheter is noted entering the spinal canal at the level of T12-L1. Impression: 1. Postsurgical and degenerative changes detailed above. Reviewed, dictated and finalized at location A. Impression: 1. Postsurgical and degenerative changes detailed above.
--- NOTE | ~2025-01-24 | CT_ITS ---
EXAMINATION: CT thoracic spine wo con DATE: 01/24/2025 15:32 INDICATION: Chronic back pain. TECHNIQUE: Computed tomography (CT) of the thoracic spine was performed without intravenous contrast. Automated exposure control and iterative reconstruction technique were employed. The dose-length product was 896.25 mGy-cm. COMPARISON: Thoracic spine radiographs 08/30/2023 FINDINGS: Bone alignment is normal. Vertebral body heights are normal. Intervertebral disc heights are normal. There is multilevel mild facet joint osteoarthritis. No neural foraminal stenosis or central canal stenosis. There are epidural electrodes with tips at T6 and T7, respectively. IMPRESSION: 1. Mild thoracic facet joint osteoarthritis. Reviewed, dictated and finalized at location E.
[2025-01-24 15:05] LABS: Estimated Glomerular Filt Rate > 60
== END 2025-01-24 14:39 | disposition home or self-care (01) ==
PROVIDERS: PCP Family Medicine; Visit Provider Nurse Practitioner Family
DX: M96.1 Postlaminectomy syndrome, not elsewhere classified (principal); M47.26 Other spondylosis with radiculopathy, lumbar region
CPT/HCPCS: 72128; 72133; Q9967